=== PATIENT | female | born 1970 | race Caucasian/White ===

== ENCOUNTER 2018-05-03 14:20 | Observation (INO) | payer BC ==
[2018-05-03] MEDS ORDERED: Albuterol-Ipratrop 3 mg / 0.5 (3 ml) UD INH STA (16:35)
--- NOTE | 2018-05-03 16:43 | ED PDOC ---
HPI: General Adult Time Seen by Provider: 05/03/18 16:41 Chief Complaint (Nursing): Respiratory Distress Chief Complaint (Provider): sob/cough History Per: Patient (48 y/o female ongoing cough/sob x 6 days; given antibiotics x 7 days ago for sinusitis. Has had negative flu test. Was sent to ED by Dr. Ayoub for evaluation.) Past Medical History Reviewed: Historical Data, Nursing Documentation, Vital Signs Vital Signs: Last Vital Signs Temp 98.5 F 05/03/18 15:05 Pulse 88 05/03/18 15:05 Resp 18 05/03/18 15:05 BP Pulse Ox 99 05/03/18 15:05 - Medical History PMH: HTN - Family History Family History: States: No Known Family Hx - Home Medications Home Medications: Ambulatory Orders Medication Instructions Recorded Albuterol Sulfate [Ventolin Hfa] 2 puff IH Q6 PRN 05/03/18 Lisinopril [Zestril] 20 mg PO DAILY 05/03/18 Montelukast Sodium [Singulair] 10 mg PO HS 05/03/18 - Allergies Allergies/Adverse Reactions: Allergies Allergy/AdvReac Type Severity Reaction Status Date / Time No Known Allergies Allergy Verified 05/03/18 15:11 Review of Systems ROS Statement: Except As Marked, All Systems Reviewed And Found Negative Respiratory: Positive for: Cough, Shortness of Breath Physical Exam - Reviewed Nursing Documentation Reviewed: Yes Vital Signs Reviewed: Yes - Physical Exam Appears: Positive for: Well, Non-toxic, No Acute Distress Head Exam: Positive for: ATRAUMATIC, NORMAL INSPECTION, NORMOCEPHALIC Skin: Positive for: Normal Color, Warm, DRY Eye Exam: Positive for: EOMI, Normal appearance, PERRL ENT: Positive for: Normal ENT Inspection Neck: Positive for: Normal, Painless ROM Cardiovascular/Chest: Positive for: Regular Rate, Rhythm Respiratory: Positive for: CNT, Normal Breath Sounds Gastrointestinal/Abdominal: Positive for: Normal Exam, Soft Back: Positive for: Normal Inspection Extremity: Positive for: Normal ROM Neurologic/Psych: Positive for: Alert, Oriented - Laboratory Results Result Diagrams: 05/03/18 17:10 05/03/18 17:10 - ECG O2 Sat by Pulse Oximetry: 99 - Progress ED Course And Treament: CXR: NAD DUONEB X 1 DOSE SOLUMEDROL 125MG IV X 1 DOSE D/W DR. AYOUB BLOOD CX X 2; LEVOQUIN 500 MG IV X 1 DOSE Disposition - Clinical Impression Clinical Impression: Asthma exacerbation - Patient ED Disposition Is Patient to be Admitted: Yes - Disposition Disposition Time: 16:56 Condition: FAIR - Pt Status Changed To: Hospital Disposition Of: Observation
[2018-05-03] MEDS ORDERED: levoFLOXacin 500 mg in D5W 500 MG/100 ML BAG IVPB STA (16:53)
[2018-05-03] MEDS ORDERED: methylPREDNISolone 125 MG in Sodium Chloride 0.9% 50 ML IVPB STA (16:54)
--- NOTE | 2018-05-03 17:15 | RAD ---
Date of service: 05/03/2018 HISTORY: routine COMPARISON: 04/20/2013 TECHNIQUE: Chest PA and lateral FINDINGS: LUNGS: No active pulmonary disease. PLEURA: No significant pleural effusion identified. No pneumothorax apparent. CARDIOVASCULAR: No aortic atherosclerotic calcification present. Normal cardiac size. No pulmonary vascular congestion. OSSEOUS STRUCTURES: No significant abnormalities. VISUALIZED UPPER ABDOMEN: Right upper quadrant post cholecystectomy clips. OTHER FINDINGS: None. IMPRESSION: No active disease.
[2018-05-03 17:25] LABS: BASO # 0.1 K/uL (0.0-0.2); EOS # 0.2 K/uL (0.0-0.7); EOS % 3.1 % (0.0-4.0); HEMOGLOBIN 14.1 g/dL (12.0-16.0); LYMPH # 4.1 K/uL (1.0-4.3); LYMPH % 56.3 % (20.0-40.0); MEAN CELL VOLUME 84.5 fl (81.0-99.0); MEAN CORPUSCULAR HEMOGLOBIN 27.9 pg (27.0-31.0); MEAN PLATELET VOLUME 8.1 fl (7.2-11.7); MONO # 0.4 K/uL (0.0-0.8); MONO % 5.4 % (0.0-10.0); NEUT # 2.5 K/uL (1.8-7.0); NEUT % 34.2 % (50.0-75.0); NRBC % 0.1 % (0.0-0.0); RBC 5.05 Mil/uL (3.80-5.20); RED CELL DISTRIBUTION WIDTH 12.4 % (11.5-14.5); WHITE BLOOD COUNT 7.3 K/uL (4.8-10.8)
[2018-05-03 17:45] LABS: ALB/GLOB RATIO 1.3 (1.0-2.1); ALBUMIN 4.4 g/dL (3.5-5.0); ALT/SGPT 55 U/L (9-52); AST/SGOT 39 U/L (14-36); BLOOD UREA NITROGEN 9 mg/dl (7-17); CALCIUM 9.7 mg/dL (8.4-10.2); GFR NON-AFRICAN AMERICAN > 60
[2018-05-03] MEDS ORDERED: Sodium Chloride 3% for Inhalation 4 ML VIAL.NEB IH PRN (17:49)
[2018-05-03] MEDS ORDERED: Promethazine/Cod 6.25mg-10mg/5ml Syr UD PO PRN (17:50)
[2018-05-03] MEDS ORDERED: levoFLOXacin 500 mg in D5W 500 MG/100 ML BAG IVPB ONE (17:56)
[2018-05-03] MEDS ORDERED: methylPREDNISolone 80 MG in Sodium Chloride 0.9% 50 ML IVPB SCH (18:00)
[2018-05-03] MEDS ORDERED: Dextrose 5%/0.45% NS 1,000 ML IV SCH (18:00)
[2018-05-03] MEDS ORDERED: Albuterol-Ipratrop 3 mg / 0.5 (3 ml) UD ONE (18:02)
[2018-05-03] MEDS ORDERED: Promethazine/Cod 6.25mg-10mg/5ml Syr UD ONE (19:13)
--- NOTE | 2018-05-03 21:38 | HP ---
HISTORY OF PRESENT ILLNESS: Ms. Quinones is a 48-year-old female who was admitted via the emergency room with shortness of breath, exercise intolerance, chest tightness and cough with sore throat for the past several days prior to presentation. She had been to two allergy centers, treated with multiple antibiotics and cough syrups and sent home, but symptoms, however, worsened. She sought help in the office and was referred to the emergency room for further workup and therapy. PAST MEDICAL HISTORY: Asthma and hypertension. FAMILY HISTORY: Nonrevealing. 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 REVIEW OF SYSTEMS: Essentially unremarkable. PHYSICAL EXAMINATION: GENERAL: The patient is alert, oriented, appears to be still in some distress because of shortness of breath, chest tightness and cough. VITAL SIGNS: Blood pressure 120/75 pulse of 88, respiratory rate 18. She is febrile. O2 sat 99% on nasal cannula oxygen. SKIN: Shows fair turgor. HEENT: Pupils are reactive to light and accommodation. JVP flat. Mouth shows fair hygiene. LUNGS: Poor aeration with scattered bilateral rales and wheezing. HEART: S1, S2. ABDOMEN: Soft, nontender. No organomegaly. EXTREMITIES: Show no edema or cyanosis. CENTRAL NERVOUS SYSTEM: Grossly intact. LABORATORY DATA: WBC 7.3, hemoglobin of 14.1, platelet count 450,000. Sodium 134, potassium 3.9, BUN 9, creatinine 0.7, AST 39, ALT 55, serum glucose 106. Chest x-ray, no acute cardiopulmonary pathology. IMPRESSION: Acute exacerbation of asthma following symptoms of upper respiratory tract infection, hypertension fairly controlled, mild elevation of hepatic enzymes probably secondary to infection. PLAN: Intravenous antibiotics as well as bronchodilators, oxygen. We will give antitussives and bronchodilators. Further therapy will depend on findings. Beni Fisher MD
[2018-05-03] MEDS: Albuterol-Ipratrop 3 mg / 0.5 (3 ml) UD INH SCH (22:17)
[2018-05-03] MEDS: guaiFENesin-DM 600-30 mg ER Tab PO SCH (22:47)
[2018-05-04] MEDS: Albuterol-Ipratrop 3 mg / 0.5 (3 ml) UD INH SCH ×2 (00:59→07:18)
[2018-05-04] MEDS: guaiFENesin-DM 600-30 mg ER Tab PO SCH ×2 (09:17→16:41)
[2018-05-04 09:23] VITALS: RESP 20
[2018-05-04] MEDS: levoFLOXacin 500 mg in D5W 500 MG/100 ML BAG IVPB SCH (10:21)
[2018-05-04] MEDS ORDERED: Levalbuterol 1.25 MG/3 ML Inhal Soln UD INH PRN (10:43)
[2018-05-04] MEDS ORDERED: Promethazine DM 12.5 mg-30 mg/10 ml Syrup PO PRN (10:44)
--- NOTE | 2018-05-04 10:47 | CP.PCM.PN ---
Subjective - Date & Time of Evaluation Date of Evaluation: 05/04/18 Time of Evaluation: 10:46 - Subjective Subjective: STILL COUGHING AND DYSPNEIC C/O INSOMNIA C PLEURITIC CHEST PAINS ON COUGHING Objective - Vital Signs/Intake and Output Vital Signs (last 24 hours): Temp Pulse Resp BP Pulse Ox 97.8 F 90 20 175/72 H 96 05/04/18 09:21 05/04/18 09:21 05/04/18 09:21 05/04/18 09:21 05/04/18 09:21 - Medications Medications: Current Medications Acetaminophen (Tylenol 325mg Tab) 650 mg PO Q4 PRN PRN Reason: Fever >100.4 F Acetaminophen (Tylenol 325mg Tab) 650 mg PO Q4 PRN PRN Reason: Headache Guaifenesin/Dextromethorphan (Mucinex-Dm 600-30 Mg) 2 tab PO BID [facility] Last Admin: 05/04/18 09:17 Dose: 2 tab Levofloxacin/Dextrose (Levaquin 500mg) 500 mg in 100 mls @ 100 mls/hr IVPB DAILY [facility]; Protocol Last Admin: 05/04/18 10:21 Dose: 100 mls/hr Dextrose/Sodium Chloride (Dextrose 5%/0.45% Ns 1000 Ml) 1,000 mls @ 42 mls/hr IV [id number] [facility] Stop: 05/04/18 17:58 Last Admin: 05/03/18 22:29 Dose: 42 mls/hr Lisinopril (Zestril) 20 mg PO DAILY [facility] Last Admin: 05/04/18 09:18 Dose: 20 mg Methylprednisolone (Solu-Medrol) 80 mg IV Q8 [facility] Last Admin: 05/04/18 09:18 Dose: 80 mg Montelukast Sodium (Singulair) 10 mg PO HS [facility] Last Admin: 05/03/18 22:31 Dose: 10 mg - Labs Labs: 05/03/18 17:10 05/03/18 17:10 - Constitutional Appears: In Acute Distress - Head Exam Head Exam: ATRAUMATIC, NORMAL INSPECTION, NORMOCEPHALIC - Eye Exam Eye Exam: EOMI, Normal appearance, PERRL Pupil Exam: NORMAL ACCOMODATION, PERRL - ENT Exam ENT Exam: Mucous Membranes Moist, Normal Exam - Neck Exam Neck Exam: Full ROM, Normal Inspection. absent: Lymphadenopathy - Respiratory Exam Respiratory Exam: Chest Wall Tenderness, Decreased Breath Sounds, Prolonged Expiratory Phase, Rales, Wheezes, NORMAL BREATHING PATTERN - Cardiovascular Exam Cardiovascular Exam: REGULAR RHYTHM, +S1, +S2. absent: Murmur - GI/Abdominal Exam GI & Abdominal Exam: Soft, Normal Bowel Sounds. absent: Tenderness - Rectal Exam Rectal Exam: NORMAL INSPECTION - Extremities Exam Extremities Exam: Full ROM, Normal Capillary Refill, Normal Inspection. absent: Joint Swelling, Pedal Edema - Back Exam Back Exam: NORMAL INSPECTION - Neurological Exam Neurological Exam: Alert, Awake, CN II-XII Intact, Normal Gait, Oriented x3 - Psychiatric Exam Psychiatric exam: Normal Affect, Normal Mood - Skin Skin Exam: Dry, Intact, Normal Color, Warm Assessment and Plan - Assessment and Plan (Free Text) Assessment: ACUTE ASTHMA URI HTN Plan: CONTINUE RX ORDERED
[2018-05-04 16:29] VITALS: PULSE 93
--- NOTE | 2018-05-04 21:01 | CARD ---
APPROVED REPORT Date of service: 05/03/2018 EKG Measurement Heart [id number] <Conclusion> Normal sinus rhythm Possible Left atrial enlargement Borderline ECG
[2018-05-05 08:27] VITALS: BP 139/89; TEMP 98; O2SAT 96
[2018-05-05] MEDS: guaiFENesin-DM 600-30 mg ER Tab PO SCH (08:41)
[2018-05-05] MEDS: levoFLOXacin 500 mg in D5W 500 MG/100 ML BAG IVPB SCH (08:42)
--- NOTE | 2018-05-05 10:13 | CP.PCM.DIS ---
Provider - Provider Date of Admission: 05/03/18 17:06 Attending physician: Beni Fisher MD Time Spent in preparation of Discharge (in minutes): 30 Diagnosis - Discharge Diagnosis (1) Hypertension Status: Acute (2) Upper respiratory infection Status: Acute (3) Asthma exacerbation Status: Acute Hospital Course - Lab Results Lab Results: Micro Results 05/03/18 18:15 Blood Blood Culture - Preliminary NO GROWTH AFTER 24 HOURS 05/03/18 17:10 Blood Blood Culture - Preliminary NO GROWTH AFTER 24 HOURS Most Recent Lab Values WBC 7.3 K/uL (4.8-10.8) 05/03/18 17:10 RBC 5.05 Mil/uL (3.80-5.20) 05/03/18 17:10 Hgb 14.1 g/dL (12.0-16.0) 05/03/18 17:10 Hct 42.7 % (34.0-47.0) 05/03/18 17:10 MCV 84.5 fl (81.0-99.0) 05/03/18 17:10 MCH 27.9 pg (27.0-31.0) 05/03/18 17:10 MCHC 33.0 g/dL (33.0-37.0) 05/03/18 17:10 RDW 12.4 % (11.5-14.5) 05/03/18 17:10 Plt Count 450 K/uL (130-400) H 05/03/18 17:10 MPV 8.1 fl (7.2-11.7) 05/03/18 17:10 Neut % (Auto) 34.2 % (50.0-75.0) L 05/03/18 17:10 Lymph % (Auto) 56.3 % (20.0-40.0) H 05/03/18 17:10 [place] % (Auto) 5.4 % (0.0-10.0) 05/03/18 17:10 Eos % (Auto) 3.1 % (0.0-4.0) 05/03/18 17:10 Baso % (Auto) 1.0 % (0.0-2.0) 05/03/18 17:10 Neut # (Auto) 2.5 K/uL (1.8-7.0) 05/03/18 17:10 Lymph # (Auto) 4.1 K/uL (1.0-4.3) 05/03/18 17:10 [place] # (Auto) 0.4 K/uL (0.0-0.8) 05/03/18 17:10 Eos # (Auto) 0.2 K/uL (0.0-0.7) 05/03/18 17:10 Baso # (Auto) 0.1 K/uL (0.0-0.2) 05/03/18 17:10 Sodium 134 mmol/l (132-148) 05/03/18 17:10 Potassium 3.9 MMOL/L (3.6-5.0) 05/03/18 17:10 Chloride 100 mmol/L (98-107) 05/03/18 17:10 Carbon Dioxide 27 mmol/L (22-30) 05/03/18 17:10 Anion Gap 11 (10-20) 05/03/18 17:10 BUN 9 mg/dl (7-17) 05/03/18 17:10 Creatinine 0.7 mg/dl (0.7-1.2) 05/03/18 17:10 Est GFR ( Amer) > 60 05/03/18 17:10 Est GFR (Non-Af Amer) > 60 05/03/18 17:10 Random Glucose 106 mg/dL (65-105) H 05/03/18 17:10 Calcium 9.7 mg/dL (8.4-10.2) 05/03/18 17:10 Total Bilirubin 0.5 mg/dl (0.2-1.3) 05/03/18 17:10 AST 39 U/L (14-36) H 05/03/18 17:10 ALT 55 U/L (9-52) H 05/03/18 17:10 Alkaline Phosphatase 77 U/L (38-126) 05/03/18 17:10 Troponin I < 0.0120 ng/mL (0.00-0.120) 05/03/18 17:10 Total Protein 8.0 G/DL (6.3-8.2) 05/03/18 17:10 Albumin 4.4 g/dL (3.5-5.0) 05/03/18 17:10 Globulin 3.5 gm/dL (2.2-3.9) 05/03/18 17:10 Albumin/Globulin Ratio 1.3 (1.0-2.1) 05/03/18 17:10 - Hospital Course Hospital Course: SOB AND COUGH IMPROVED Discharge Exam - Head Exam Head Exam: ATRAUMATIC, NORMAL INSPECTION, NORMOCEPHALIC - Eye Exam Eye Exam: EOMI, Normal appearance, PERRL Pupil Exam: NORMAL ACCOMODATION, PERRL - GI/Abdominal Exam GI & Abdominal Exam: Normal Bowel Sounds - Rectal Exam Rectal Exam: NORMAL INSPECTION - Neurological Exam Neurological exam: Alert, CN II-XII Intact, Normal Gait, Oriented x3, Reflexes Normal - Psychiatric Exam Psychiatric exam: Normal Affect, Normal Mood - Skin Skin Exam: Dry, Intact, Normal Color, Warm Discharge Plan - Follow Up Plan Condition: FAIR Disposition: HOME/ ROUTINE Instructions: Asthma, Adult (DC) Additional Instructions: follow up with primary MD 1 week Referrals: Beni Fisher MD [Family Provider] -
== END 2018-05-05 10:55 | disposition home or self-care (01) ==
LOC: H.ER 14:20 → H.ERHOLD 17:06 → H.MEDSURG1 21:30
PROVIDERS: ADMIT Internal Medicine Pulmonary Disease; ATTEND Internal Medicine Pulmonary Disease
DX: J06.9 Acute upper respiratory infection, unspecified (principal); I10 Essential (primary) hypertension; J45.901 Unspecified asthma with (acute) exacerbation; G47.00 Insomnia, unspecified
CPT/HCPCS: 71046; 80053; 81025; 84484; 85025; 87040; 93005; 94150; 94640; 96365; 96366; 99284; G0378; J2930; J7042